=== PATIENT | female | born 1985 | race Caucasian/White ===

== ENCOUNTER → 2018-04-27 15:56 | Outpatient (CLI) | payer OTHER, SELFPAY ==
--- NOTE | 2018-04-27 15:58 | MR_ITS ---
MR knee RT wo con HISTORY: Right knee pain with a knot on side of the knee laterally, knee instability ITS.REASON: RIGHT KNEE PAIN ORDERING PHYSICIAN: Harry Flores MD PATIENT AGE: 33 years Comparison: None TECHNIQUE: Standard multiplanar multiecho sequences are performed without contrast. FINDINGS: Cruciate ligaments are intact. The collateral ligaments, patellar tendon, and quadriceps tendon are intact. No meniscal tear. Unremarkable bone marrow signal intensity. Small amount of fluid noted in the knee joint. No significant degenerative change. There is a marker placed over the anterior and lateral aspect of the knee with areas of reported palpable abnormality. No mass or fluid collection evident in this region. IMPRESSION: Small knee joint effusion otherwise negative MRI of the right knee. No soft tissue or bony mass is evident No evidence of internal derangement
--- NOTE | 2018-04-27 16:23 | XR_ITS ---
XR orbit bilateral min 4V HISTORY: Patient with prior right eye scleral banding. Evaluate for possible metallic clip ITS.REASON: RULE OUT METAL FOREIGN BODY FOR MRI ORDERING PHYSICIAN: Harry Flores MD PATIENT AGE: 33 years Comparison: None TECHNIQUE: AP views are obtained of the orbits with the patient looking up and down FINDINGS: No radio opaque foreign bodies evident. No metallic clips identified within orbital region. Small sclerotic focus is present in the right frontal bone and one centrally in the frontal area and may be due to bone islands IMPRESSION: No radio opaque orbital foreign body identified
== END ==
PROVIDERS: PCP Family Medicine; Visit Provider Family Medicine
DX: M25.561 Pain in right knee (principal); M25.461 Effusion, right knee; S83.206D Unspecified tear of unspecified meniscus, current injury, right knee, subsequent encounter
CPT/HCPCS: 70200; 73721

== ENCOUNTER 2018-06-15 16:30 | Outpatient (RCR) | payer OTHER, SELFPAY ==
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
--- NOTE | 2018-05-04 11:44 | HMH.RHREAS ---
Rehab Reassessment Rehab OP Re-assessment Start: 05/04/18 11:32 Freq: Status: Active Protocol: Document 05/04/18 11:33 JESSE (Rec: 05/04/18 11:44 JESSE [id number]) Electronically Signed By Frank Fong, PT 05/04/18 11:33 Rehab Re-assessment Subjective Subjective Pt reports 50-60% overall improvement since start of care. Objective Objective Notes AROM: WNL MMT R: hip flx 4+/5, abd 4+/5, add 4/5, ext 4+/5; ER/IR 4/5; knee flx 4-/5 with pain, ext 4+/5 TTP: R distal biceps femoris insertion. NEURO WNL Special tests negative. Assessment Progress Assessment Progressing as Expected Assessment Notes Pt continues to improve with Rx. She is no longer demonstrating extension lag or fear avoidance of terminal knee ext. She most recently had an MRI which was negative for any soft tissue damage. Mild joint effusion noted. She continues to be limited with prolonged walking/ standing, bending and squatting resulting in functional limitations with household, recreational, work related and ADL activity. She would benefit from continuing with PT and being fit for prophylactic knee brace. Patient goals met STG's Goals Not Met LTG's Revised Goals NA Plan Plan Continue with current plan of care. Frequency of Therapy 2x/week Duration of therapy 4 weeks Time and Billing Re-Eval Time 15 Re-Eval Billing Units 1 PHYSICIAN CERTIFICATION: I certify the specified therapy services for Jennifer Rosen are required, authorized, and reviewed every 30 days.
== END 2018-06-15 16:35 | disposition home or self-care (01) ==
LOC: PT 16:30
PROVIDERS: Visit Provider Family Medicine
DX: M25.561 Pain in right knee (principal)
CPT/HCPCS: 97010; 97014; 97016; 97033; 97035; 97110; 97140; 97163; 97164; G0283

== ENCOUNTER → 2019-12-20 14:06 | Outpatient (CLI) | payer OTHER, SELFPAY ==
[2019-12-20 14:14] LABS: Basophils % 0.6 % (0.1-2.0); Eosinophils # 0.1 K/mm3 (0.0-0.4); Eosinophils % 1.5 % (0.1-12.0); Hematocrit 34.2 % (37.0-47.0); Hemoglobin 12.4 g/dL (12.2-16.2); Lymphocytes # 1.6 K/mm3 (0.7-4.5); Lymphocytes % 24.1 % (10-50); Mean Corpuscular HGB Conc 36.3 g/dL (31.8-35.4); Mean Corpuscular Hemoglobin 35.7 pg (27.0-31.2); Mean Corpuscular Volume 98.4 fl (81-99); Mean Platelet Volume 8.1 fl (7.4-10.4); Monocytes # 0.3 K/mm3 (0.1-1.0); Monocytes % 4.4 % (1.7-9.3); Neutrophils # 4.7 K/mm3 (1.8-7.8); Neutrophils % 69.5 % (37.0-80.0); Platelet Count 326 K/mm3 (142-424); Red Blood Count 3.48 M/mm3 (4.20-5.40); Red Cell Distribution Width 12.6 % (11.5-17.5); White Blood Count 6.8 K/mm3 (4.8-10.8)
[2019-12-20 14:19] LABS: Alanine Aminotransferase 12 U/L (12-78); Albumin/Globulin Ratio 1.3 (1.1-1.8); Alkaline Phosphatase 109 U/L (38-126); Anion Gap 13.4 mEq/L (5-15); Aspartate Amino Transferase 21 U/L (14-36); Bilirubin,Total 0.5 mg/dl (0.2-1.3); Blood Urea Nitrogen 9 mg/dl (7-17); Calcium 9.2 mg/dl (8.4-10.2); Carbon Dioxide 26 mmol/L (22.0-30.0); Chloride 104 mmol/L (98-107); Chol/HDL Ratio 2.3 (1-3.5); Cholesterol 223 mg/dl (140-200); Estimated Glomerular Filt Rate 83 ml/min (>60); GFR (African American) 101 ML/MIN (>60); Glucose 96 mg/dl (74-100); HDL Cholesterol 99 mg/dl (40-60); Potassium 4.4 mmoL/L (3.5-5.1); Sodium 139 mmol/L (136-145); Triglycerides 107 mg/dl (30-150); VLDL Cholesterol 21 mg/dL (0-40)
[2019-12-20 14:36] LABS: T4 (Thyroxine) 9.2 ug/dl (5.53-11.0)
[2019-12-20 14:44] LABS: 25-OH Vitamin D, Total 20.5 ng/mL (30-100)
[2019-12-20 14:49] LABS: Thyroid Stimulating Hormone 2.03 uIU/mL (0.465-4.68)
== END ==
PROVIDERS: Visit Provider Physician Assistant
DX: L65.9 Nonscarring hair loss, unspecified (principal); R53.83 Other fatigue; E55.9 Vitamin D deficiency, unspecified
CPT/HCPCS: 80053; 80061; 82306; 84436; 84443; 85025

== ENCOUNTER → 2019-12-27 17:11 | Outpatient (CLI) | payer OTHER, SELFPAY ==
[2019-12-27 18:54] LABS: Coronavirus 19 IgG Antibody Negative (Negative); Coronavirus 19 IgM Antibody Negative (Negative)
== END ==
PROVIDERS: Visit Provider Nurse Practitioner Family
DX: Z20.828 Contact with and (suspected) exposure to other viral communicable diseases (principal)
CPT/HCPCS: 86328

== ENCOUNTER → 2020-01-20 13:16 | Outpatient (CLI) | payer OTHER, SELFPAY ==
[2020-01-21 16:18] LABS: Covid-19 Nasal PCR Sendout Lex NOT DETECTED
== END ==
PROVIDERS: Visit Provider Internal Medicine Adolescent Medicine
DX: Z03.818 Encounter for observation for suspected exposure to other biological agents ruled out (principal)
CPT/HCPCS: U0004

== ENCOUNTER → 2020-02-20 15:02 | Outpatient (CLI) | payer OTHER, SELFPAY | PROVIDERS: Visit Provider Obstetrics & Gynecology | DX: L02.91 Cutaneous abscess, unspecified (principal) | CPT/HCPCS: 87070; 87077; 87186; 87205 ==

== ENCOUNTER 2020-04-03 10:54 | Emergency (ER) | payer OTHER, SELFPAY ==
[2020-04-03 10:55] VITALS: BP 124/79; PULSE 98; RESP 16; TEMP 36.6; O2SAT 98; BMI 46.0
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
--- NOTE | 2020-04-03 11:27 | PC.NURSE ---
Lab at bedside
[2020-04-03 11:59] VITALS: BP 132/78; PULSE 78; RESP 16; TEMP 36.6; O2SAT 98
[2020-04-03 11:59] LABS: Basophils % 0.3 % (0.1-2.0); Eosinophils # 0.1 K/mm3 (0.0-0.4); Eosinophils % 0.7 % (0.1-12.0); Hematocrit 39.8 % (37.0-47.0); Hemoglobin 12.9 g/dL (12.2-16.2); Lymphocytes % 20.8 % (10-50); Mean Corpuscular HGB Conc 32.5 g/dL (31.8-35.4); Mean Corpuscular Volume 95.4 fl (81-99); Mean Platelet Volume 7.5 fl (7.4-10.4); Monocytes # 0.3 K/mm3 (0.1-1.0); Monocytes % 2.7 % (1.7-9.3); Neutrophils # 7.2 K/mm3 (1.8-7.8); Neutrophils % 75.5 % (37.0-80.0); Platelet Count 398 K/mm3 (142-424); Red Blood Count 4.17 M/mm3 (4.20-5.40); Red Cell Distribution Width 13.1 % (11.5-17.5); White Blood Count 9.6 K/mm3 (4.8-10.8)
[2020-04-03 12:04] LABS: Alanine Aminotransferase 16 U/L (12-78); Alkaline Phosphatase 89 U/L (38-126); Aspartate Amino Transferase 26 U/L (14-36); Bilirubin,Indirect 0.4 mg/dL (0.0-0.9); Bilirubin,Total 0.4 mg/dl (0.2-1.3); Bilirubin,Unconjugated 0.4 mg/dL (0.0-1.1)
[2020-04-03 12:05] LABS: Albumin Level 4.2 g/dl (3.5-5.0); Total Protein,Serum 7.3 g/dl (6.3-8.2)
[2020-04-03 12:11] LABS: Activated Partial Thrombo Time 28.8 seconds (23.6-34.0); INR 0.97 (0.9-1.1); Prothrombin Time 10.8 seconds (9.4-11.8)
[2020-04-06 11:39] LABS: HIV Screen 4th Generation wRfx Non Reactive (Non Reactive); Hepatitis B Surf Ab Quant 438.8 mIU/mL (Immunity>9.9); Hepatitis B Surface Antigen Negative (Negative); Hepatitis C Antibody <0.1 s/co ratio (0.0-0.9)
== END 2020-04-03 12:01 | disposition home or self-care (01) ==
PROVIDERS: Emergency Provider Emergency Medicine; PCP Physician Assistant
DX: S61.239A Puncture wound without foreign body of unspecified finger without damage to nail, initial encounter (principal); W46.0XXA Contact with hypodermic needle, initial encounter; Y93.89 Activity, other specified; Y92.531 Health care provider office as the place of occurrence of the external cause
CPT/HCPCS: 36415; 80076; 85025; 85610; 85730; 86703; 86706; 87340; 87380; 99281; G0432

== ENCOUNTER → 2020-05-08 16:27 | Outpatient (CLI) | payer OTHER, SELFPAY ==
[2020-05-08 17:36] LABS: Coronavirus 19 IgG Antibody Negative (Negative); Coronavirus 19 IgM Antibody Negative (Negative)
== END ==
PROVIDERS: Visit Provider Family Medicine
DX: Z03.818 Encounter for observation for suspected exposure to other biological agents ruled out (principal)
CPT/HCPCS: 86328

== ENCOUNTER 2020-09-14 11:53 | Day surgery (SDC) | payer OTHER, SELFPAY ==
[2020-09-14] VITALS (8 sets, daily range): BP systolic 101–128; BP diastolic 63–80; PULSE 74–100; RESP 14–18; TEMP 36.3–36.5; O2SAT 97–100; BMI 45.5; BMI 47.8
[2020-09-14 09:53] LABS: Coronavirus 19 IgG Antibody Negative (Negative); Coronavirus 19 IgM Antibody Negative (Negative)
[2020-09-14 13:04] LABS: Urine Pregnancy, HCG Qual. Negative (Negative)
--- NOTE | 2020-09-14 14:11 | P.PN_ITS ---
[facility] Anesthesia Checklist - Patient Identification Patient Identification: Arm Band - Structural Data Admitted From: Home Planned Operative Procedure/s: EGD Consent for Planned Operative Procedure(s) Verified: Yes - NPO Status Verified Time NPO: 00:00 - Airway Assessment Dentition: Good Dentition - Neurological Assessment Level of Consciousness: Awake, Alert Hx Seizures: No Numbness or tingling in extremities: No - Anesthesia Plan Anesthesia Risk discussed: Yes Anesthesia Plan: Verified ASA Class: II Anesthesia Type: MAC [facility] History I have reviewed the patient's past medical history: Yes Medical History: Reports:: Anxiety, Hypertension, Migraine, MRSA (perineal) Denies:: Cancer, Diabetes Mellitus Type 1, Diabetes Mellitus Type 2, Internal Pacemaker, Seizures *Have you ever received a pneumonia vaccine?: No *Have you received a flu vaccine this season?: Yes Anesthesia experience/problems:: None Other Surgeries: Yes: . No: Pacemaker Amputation: No Fractures: No - *Social History Last grade of school completed: Some college Smoking Status: Never smoker Alcohol Intake: never Substance Use Type: denies use *Occupational Status:: employed Housing: house Household Members: other *Travel in the last 8 weeks: None Family Hx:: No significant family history
--- NOTE | 2020-09-14 14:30 | P.PCN_ITS ---
[facility] Procedure Note Procedure Note:: Upper Endoscopy Procedure Report: Esophagogastroduodenoscopy with cold biopsies and TTS balloon dilation Endoscopost: Jordin Quinones II, MD Referring Physician: MERCEDEZ Agudelo Date of Procedure: September 14, 2020 Equipment: Olympus GIF 190 standard upper endoscope Sedation: MAC sedation Indications: Mrs. Rosen is a 35-year-old female with dysphagia over the last couple of years which has worsened. This occurs primarily with dry breads and meats. This did occur more recently after eating at the [employer] and pineapple got hung up. The only thing that will push things through his water. She does have some intermittent heartburn but not recently. She reports no indigestion, bloating or belching. She has normal bowel function. This is her first upper endoscopy. Procedure: Prior to the procedure, a history and physical exam was performed, and patient's medications and allergies were reviewed. The risks, benefits and alternatives of the sedation and procedure were discussed with the patient. All questions were answered and informed consent was obtained. The patient was brought to the procedure room. Patient identification and proposed procedure were verified by the physician and the nurse. The patient was placed in a left lateral decubitus position and the scope was passed under direct vision. Throughout the procedure, the patient's blood pressure, pulse, and oxygen saturations were monitored continuously. The upper GI endoscopy was accomplished without diffi culty. The patient tolerated the procedure well. Findings: The scope was passed directly into the upper esophagus and advanced to the third portion of the duodenum. The post bulbar duodenum and duodenal bulb were normal with normal mucosa and conniventes. The scope was withdrawn through a normal duodenal bulb and pylorus into the stomach. The antrum, body and fundus of the stomach were grossly normal. Upon retroflexion there was a small 1 to 2 cm hiatal hernia. The scope was then withdrawn into the esophagus. There was a distal esophageal ring with evidence of grade B?C reflux esophagitis. There was minor furrowing and minor corrugation. Biopsies were taken from the distal and proximal esophagus to rule out eosinophilic esophagitis versus esophageal reflux changes. The entire esophagus was dilated to 60 [place]/20 mm with a TTS hydrostatic balloon. The remainder of the esophageal mucosa was normal. Impression: 1. Grade B?C reflux esophagitis (LA classification) with distal esophageal ringlike stricture?dilated to 20 mm 2. Minor furrowing/esophageal corrugation?rule out eosinophilic esophagitis 3. Very small sliding hiatal hernia (1 to 2 cm) Plan: I am going to place the patient on omeprazole for 3 months for healing of the reflux esophagitis. I will follow-up the biopsies to rule out eosinophilic esophagitis (EoE) versus reflux. I am going to obtain Rast food allergy testing today. If the biopsies show any evidence of eosinophilic esophagitis, we will consider nonpharmacologic therapy (food illumination) versus long-term PPI or fluticasone.
--- NOTE | 2020-09-14 14:35 | P.PN_ITS ---
[facility] Anesthesia Record Part I Intake, IV Amount: 600 Estimated blood loss (mL): 0 Urine output (mL): 0 Blood Pressure: 107/63 SaO2: 100 Pulse Rate: 90 Respiratory Rate: 14 Temperature: 97.4 F Patient is:: Awake Stable to PACU at:: 14:34
[2020-09-20 22:22] LABS: F001-IgE Egg White <0.10 kU/L (Class 0); F002-IgE Milk <0.10 kU/L (Class 0); F003-IgE Codfish <0.10 kU/L (Class 0); F004-IgE Wheat <0.10 kU/L (Class 0); F013-IgE Peanut <0.10 kU/L (Class 0); F014-IgE Soybean <0.10 kU/L (Class 0); F024-IgE Shrimp 0.98 kU/L (Class II); F256-IgE Walnut <0.10 kU/L (Class 0); F338-IgE Scallop <0.10 kU/L (Class 0)
[2020-09-22 04:20] LABS: F010-IgE Sesame Seed <0.10 kU/L (Class 0)
== END 2020-09-14 15:29 | disposition home or self-care (01) ==
LOC: OUTP 11:55
PROVIDERS: PCP Nurse Practitioner Family; Visit Provider Internal Medicine Gastroenterology
PROC: 0DJ08ZZ Inspection of Upper Intestinal Tract, Via Natural or Artificial Opening Endoscopic (ICD-10-PCS; CPT 43235; principal; 2020-09-14 13:00)
DX: K21.9 Gastro-esophageal reflux disease without esophagitis; K22.9 Disease of esophagus, unspecified; K44.9 Diaphragmatic hernia without obstruction or gangrene; F41.9 Anxiety disorder, unspecified; I10 Essential (primary) hypertension; G43.909 Migraine, unspecified, not intractable, without status migrainosus; Z86.14 Personal history of Methicillin resistant Staphylococcus aureus infection; F32.9 Major depressive disorder, single episode, unspecified; F90.9 Attention-deficit hyperactivity disorder, unspecified type; Z79.899 Other long term (current) drug therapy
CPT/HCPCS: 43239; 43249; 36415; 81025; 86003; 86008; 86328; C1726

== ENCOUNTER → 2021-01-04 17:10 | Outpatient (CLI) | payer OTHER, SELFPAY ==
[2021-01-04 17:29] LABS: Coronavirus 19, PCR Not Detected (NotDetected); Influenza A, PCR Not Detected (NotDetected); Influenza B, PCR Not Detected (NotDetected)
== END ==
PROVIDERS: PCP Nurse Practitioner Family; Visit Provider Nurse Practitioner Family
DX: Z20.822 Contact with and (suspected) exposure to COVID-19 (principal)
CPT/HCPCS: U0003

== ENCOUNTER → 2021-01-08 12:07 | Outpatient (CLI) | payer OTHER, SELFPAY ==
[2021-01-08 12:51] LABS: Coronavirus 19, PCR Not Detected (NotDetected); Influenza A, PCR Not Detected (NotDetected); Influenza B, PCR Not Detected (NotDetected)
== END ==
PROVIDERS: PCP Nurse Practitioner Family; Visit Provider Emergency Medicine
DX: Z20.822 Contact with and (suspected) exposure to COVID-19 (principal)
CPT/HCPCS: U0003

== ENCOUNTER → 2021-01-27 13:10 | Outpatient (CLI) | payer OTHER, SELFPAY ==
[2021-01-27 13:22] LABS: Adenovirus,PCR Not Detected (NotDetected); Bordetella Pertussis Not Detected (NotDetected); Chlamydophila Pneumoniae, PCR Not Detected (NotDetected); Coronavirus 19, PCR Not Detected (NotDetected); Coronavirus 229E Not Detected (NotDetected); Coronavirus NL63 Not Detected (NotDetected); Coronavirus OC43 Not Detected (NotDetected); Coronovirus HKU1,PCR Not Detected (NotDetected); Human Metapneumovirus Not Detected (NotDetected); Influenza A, PCR Not Detected (NotDetected); Influenza AH1, 2009 Not Detected (NotDetected); Influenza AH1, PCR Not Detected (NotDetected); Influenza AH3,PCR Not Detected (NotDetected); Influenza B, PCR Not Detected (NotDetected); Mycoplasma Pneumoniae, PCR Not Detected (NotDetected); Parainfluenza 1, PCR Not Detected (NotDetected); Parainfluenza 2, PCR Not Detected (NotDetected); Parainfluenza 3, PCR Not Detected (NotDetected); Parainfluenza 4, PCR Not Detected (NotDetected); Respiratory Syncytial Virus Not Detected (NotDetected); Rhinovirus/Enterovirus Not Detected (NotDetected)
== END ==
PROVIDERS: Visit Provider Nurse Practitioner Family
DX: Z20.822 Contact with and (suspected) exposure to COVID-19 (principal)
CPT/HCPCS: 87486; 87581; 87633; 87798; U0003

== ENCOUNTER 2021-02-01 17:38 | Emergency (ER) | payer OTHER, SELFPAY ==
[2021-02-01 18:35] VITALS: BP 115/79; PULSE 91; RESP 20; TEMP 36.8; O2SAT 99; BMI 44.1
[2021-02-01 18:52] LABS: Influenza A, PCR Not Detected (NotDetected); Influenza B, PCR Not Detected (NotDetected)
--- NOTE | 2021-02-01 19:04 | HMH.EDUTC ---
[facility] Disposition Clinical Impression: Exposure to COVID-19 virus Disposition: Home, Self-Care Condition on Discharge: Good Instructions: DI for COVID-19 (Suspected or Confirmed ), Preventing the Spread of Coronavirus Discharge Instructions Additional Instructions: *Monitor Temp, Over the counter Motrin or Tylenol as directed/as needed Tylenol every 4 hours and Motrin every 6 hours (as long as your family doctor has told you that you can take it) for fever or pain. and straight to ER if unable to lower temp less than 101.0 after medication given *Warm salt water gargles may help to soothe the throat *Throat Lozenges *Warm fluids like tea with honey may help to soothe the throat *Sleep elevated *Humidifier/Vaporizer * Follow up IMMEDIATELY for new or worsening symptoms or no Noticeable improvement over the next 48-72 hours. 911 for difficulty breathing or swallowing You were tested for today for COVID19 your test result should be back in the next 24-48 hours, You was given instructions to check on [facility] Portal for your results if you do not have internet access you may call the [facility] You was given a handout with instructions for Self Quarantine and Self isolation for while you wait on test results and what to do if they are positive If you are positive the Health Dept will be contacting you also Make sure to take your Vitamins Vit. C Vit D and Zinc if you can take them Referrals: Pb Anguiano APRN [Primary Care Provider] - As needed Forms: Work/School Release Time of Disposition: 19:10 Medical Decision Making - Kit Inquiry Pt receiving controlled substance: No Kit was queried for this patient: No Vital Signs: 02/01/21 18:35 Temperature 98.2 F Temperature Source Oral Pulse Rate [Right Brachial] 91 H Respiratory Rate 20 Blood Pressure [Right Arm] 115/79 Blood Pressure Mean [Right Arm] 91 Blood Pressure Source [Right Arm] Automatic Cuff Blood Pressure Position [Right Arm] Sitting 02 Sat by Pulse Oximetry 99 Oxygen Delivery Method Room Air Orders (Tests/Meds): ORDERS Category Date Time Status Rapid PCR Covid and Flu A/B Stat Lab 02/01/21 18:44 Received [facility] HPI - General Stated complaint: covid test Time Seen by Provider: 02/01/21 19:00 Mode of Arrival: Ambulatory Source of Information: Patient Limitations: No Limitations Description of Symptoms (Recalled from Triage Doc. by RN): COVID TEST D/T EXPOSURE. C/O HEADACHE, RUNNY NOSE, AND LOSS OF TASTE AND SMELL HEENT Symptoms (Recalled from RN notes): Yes Resp Symptoms (Recalled from RN notes): No Skin Symptoms (Recalled from RN notes): No MS Symptoms (Recalled from RN notes): No Functional Status (Recalled from RN notes): WNL - History of Present Illness Provider Complaint: Patient states that her child was recently dx with COVID states that now she is having symptoms States that she has been having body aches, chills, runny nose and scratchy throat and noticed earlier that she was unable to taste and smell anything so she came in to get tested - Related Data Previous Rx's Medication Instructions Recorded norethindrone 1 mg-ethin. 1 cap PO QDAY #84 cap 06/25/20 estradiol 20 mcg (24)-iron 75 mg (4) capsule dextroamphetamine-amphetamine ER 15 mg PO DAILY #30 cap 12/17/20 15 mg 24hr capsule,extend release fluconazole 100 mg tablet 100 mg PO ONCE #7 tab 01/13/21 omeprazole 40 mg capsule,delayed 40 mg PO DAILY #90 cap 01/13/21 release vilazodone 40 mg tablet 40 mg PO DAILY #30 tab 01/27/21 Allergies Allergy/AdvReac Type Severity Reaction Status Date / Time codeine Allergy Verified 12/17/20 16:19 - Worker's Comp Is this a Worker's Comp case?: No [facility] History - Hepatitis A Screen Drug use history?: No High risk sexual behaviors?: No History of sexually transmitted infection?: No Currently employed?: No Childcare worker?: No Do you have indoor plumbing?: Yes Do you have electricity?: Yes Attestation
[2021-02-01 19:11] VITALS: BP 115/79; PULSE 91; RESP 20; TEMP 36.8; O2SAT 99
[2021-02-01 19:48] LABS: Coronavirus 19, PCR Detected (NotDetected)
== END 2021-02-01 19:14 | disposition home or self-care (01) ==
PROVIDERS: Emergency Provider Nurse Practitioner; PCP Nurse Practitioner Family
DX: Z20.822 Contact with and (suspected) exposure to COVID-19 (principal)
CPT/HCPCS: 99202; G0463; U0003

== ENCOUNTER 2021-04-08 20:13 | Emergency (ER) | payer OTHER, SELFPAY ==
[2021-04-08 20:14] VITALS: BMI 45.1
[2021-04-08 20:16] VITALS: BP 134/88; PULSE 112; RESP 18; O2SAT 100
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
[2021-04-08 20:51] LABS: Basophils # 0.1 K/mm3 (0-0.2); Basophils % 0.4 % (0.1-2.0); Eosinophils # 0.1 K/mm3 (0.0-0.4); Eosinophils % 0.5 % (0.1-12.0); Hematocrit 40.4 % (37.0-47.0); Lymphocytes # 2.1 K/mm3 (0.7-4.5); Lymphocytes % 13.1 % (10-50); Mean Corpuscular HGB Conc 32.1 g/dL (31.8-35.4); Mean Corpuscular Hemoglobin 30.1 pg (27.0-31.2); Mean Corpuscular Volume 93.7 fl (81-99); Monocytes # 0.5 K/mm3 (0.1-1.0); Monocytes % 3.3 % (1.7-9.3); Neutrophils # 13.4 K/mm3 (1.8-7.8); Neutrophils % 82.7 % (37.0-80.0); Platelet Count 425 K/mm3 (142-424); Red Blood Count 4.31 M/mm3 (4.20-5.40); Red Cell Distribution Width 13.2 % (11.5-17.5); White Blood Count 16.2 K/mm3 (4.8-10.8)
[2021-04-08 20:55] LABS: Chloride 104 mmol/L (98-107); MANUAL DIFFERENTIAL MANUAL DIFFERENTIAL (MANUAL DIFF)
[2021-04-08 20:56] LABS: Potassium 3.8 mmoL/L (3.5-5.1); Sodium 138 mmol/L (136-145)
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
[2021-04-08 20:58] LABS: Alanine Aminotransferase 15 U/L (12-78); Alkaline Phosphatase 125 U/L (38-126); Anion Gap 11.8 mEq/L (5-15); Aspartate Amino Transferase 22 U/L (14-36); Bilirubin,Total 0.4 mg/dl (0.2-1.3); Blood Urea Nitrogen 7 mg/dl (7-17); Carbon Dioxide 26 mmol/L (22.0-30.0); Creatinine Clearance Estimated 82 mL/min (50-200); Estimated Glomerular Filt Rate 82 ml/min (>60); GFR (African American) 99 ML/MIN (>60)
[2021-04-08 20:59] LABS: Albumin Level 4.2 g/dl (3.5-5.0); Albumin/Globulin Ratio 1.4 (1.1-1.8); Calcium 8.6 mg/dl (8.4-10.2); Globulin 3.1 g/dL (1.3-3.2); Glucose 101 mg/dl (74-100); Total Protein,Serum 7.3 g/dl (6.3-8.2)
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
[2021-04-08 21:26] LABS: Eosinophils % 1 % (0-3); Lymphocytes % 13 % (10-50); Monocytes % 6 % (2-9); Neutrophils % 79 % (42-76); Platelet Estimate Normal; Total Cells Counted 100
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
[2021-04-09 01:15] VITALS: BP 101/68; PULSE 88; RESP 16; TEMP 36.6; O2SAT 97
== END 2021-04-09 01:34 | disposition home or self-care (01) ==
PROVIDERS: Emergency Provider Emergency Medicine; PCP Nurse Practitioner Family
DX: S06.0X0A Concussion without loss of consciousness, initial encounter (principal); S62.91XA Unspecified fracture of right hand, initial encounter for closed fracture; S92.144A Nondisplaced dome fracture of right talus, initial encounter for closed fracture; W22.10XA Striking against or struck by unspecified automobile airbag, initial encounter; V49.9XXA Car occupant (driver) (passenger) injured in unspecified traffic accident, initial encounter; Y92.488 Other paved roadways as the place of occurrence of the external cause
CPT/HCPCS: 29515; 70450; 71045; 71260; 72125; 72170; 73110; 73130; 73590; 73610; 73630; 73700; 80053; 85007; 85025; 96376; 99283; J2405; Q9967

== ENCOUNTER 2021-07-28 17:00 | Outpatient (RCR) | payer OTHER, SELFPAY | END 2021-07-28 17:05 | disposition home or self-care (01) | LOC: PT 17:00 | PROVIDERS: PCP Nurse Practitioner Family | DX: S62.610A Displaced fracture of proximal phalanx of right index finger, initial encounter for closed fracture (principal); S92.111A Displaced fracture of neck of right talus, initial encounter for closed fracture | CPT/HCPCS: 97110; 97140; 97163; 97760 ==

== ENCOUNTER 2022-01-23 16:46 | Emergency (ER) | payer OTHER, SELFPAY ==
[2022-01-23 17:21] VITALS: BP 178/95; PULSE 90; RESP 17; TEMP 36.7; O2SAT 99; BMI 46.9
--- NOTE | 2022-01-23 17:39 | EXP.UTC ---
Discharge Plan Disposition Patient Disposition: Home, Self-Care Condition: Good Prescriptions Prescriptions: New cephalexin [cephalexin] 500 mg capsule 500 mg PO Q6H 10 Days Qty: 40 0RF No Action dextroamphetamine-amphetamine [Adderall XR] 30 mg capsule,extended release 24hr 30 mg PO DAILY Qty: 30 0RF bupropion HCl [Wellbutrin XL] 150 mg tablet extended release 24 hr 150 mg PO DAILY Qty: 30 1RF erythromycin 5 mg/gram (0.5 %) ointment 1 applic OPHTHALMIC DAILY Qty: 3.5 0RF Rx Instructions: Apply to lid margin and outer eye lid once a day X 3-4 weeks until resolved oxycodone-acetaminophen [Percocet] 5-325 mg tablet See Rx Instructions PO Q6H PRN (Reason: pain) Qty: 45 0RF Rx Instructions: one or two tablets PO every 6 hours PRN; furosemide [Lasix] 40 mg tablet 40 mg PO DAILY PRN (Reason: edema) Qty: 30 2RF Ubrelvy 100 mg tablet 100 mg PO ONCE PRN (Reason: migraine headache) 30 Days Qty: 48 0RF omeprazole 40 mg capsule,delayed release(DR/EC) 40 mg PO DAILY Qty: 90 3RF Referrals Follow up/Referrals: Pb Anguiano APRN [Primary Care Provider] - See instructions Activity Restrictions/Add. Instructions Additional Instructions/Restrictions: Keep the wound clean and dry. Keep a dressing on it if you are going to be getting it dirty. Watch the for signs of infection, such as redness, swelling, drainage, fever. etc. Take tylenol or ibuprofen for pain. Follow up with her regular doctor. Return in 10 days to have the sutures removed. GO TO THE ER FOR ANY WORSENING SYMPTOMS OR CONCERNS. Clinical Impressions Clinical Impression: Laceration of right index finger Instructions Patient Instructions: DI for Laceration Repair, DI for Laceration Repair -- Simple Discharge ED Provider: Bc Levy [facility] [place] General Stated complaint: [id number] At home lac to R index finger Mode of Arrival: Ambulatory Source of Information: Patient Limitations: No Limitations Time Seen by Provider: 01/23/22 17:40 Description of Symptoms (Recalled from Triage Doc. by RN): pt comes in with lac to right index finger. happened today while she was attempting to slice potatoes. HEENT Symptoms (Recalled from RN notes): No Resp Symptoms (Recalled from RN notes): No Skin Symptoms (Recalled from RN notes): Yes MS Symptoms (Recalled from RN notes): No Functional Status (Recalled from RN notes): n/a History of Present Illness Provider Complaint: She was slicing potatoes on a mandolin today when she slipped and cut herself on the tip of her right index finger. She has a laceration there. Her tetanus immunization is not up to date. Related Data Previous Rx's Medication Instructions Recorded erythromycin 5 mg/gram (0.5 %) eye 1 applic ophthalmic (eye) DAILY 02/25/21 ointment #3.5 grams oxycodone-acetaminophen 5 mg-325 See Rx Instructions PO Q6H PRN 04/09/21 mg tablet (Percocet) pain #45 tabs furosemide 40 mg tablet (Lasix) 40 mg PO DAILY PRN edema #30 tabs 08/03/21 ubrogepant 100 mg tablet (Ubrelvy) 100 mg PO ONCE PRN migraine 08/10/21 headache 30 days #48 tabs dextroamphetamine-amphetamine ER 30 mg PO DAILY #30 caps 11/01/21 30 mg 24hr capsule,extend release (Adderall XR) omeprazole 40 mg capsule,delayed 40 mg PO DAILY #90 caps 12/02/21 release bupropion HCl 150 mg 24 hr tablet, 150 mg PO DAILY #30 tabs 01/03/22 extended release (Wellbutrin XL) cephalexin 500 mg capsule 500 mg PO Q6H 10 days #40 caps 01/23/22 Allergies Allergy/AdvReac Type Severity Reaction Status Date / Time codeine Allergy Verified 01/13/22 14:33 Worker's Comp Is this a Worker's Comp case?: No PFSH PFSH Medical History Anxiety Attention Deficit Hyperactivity Disorder (ADHD) Depression Social History Smoking Status: Former smoker alcohol intake: never substance use type: lavon
[2022-01-23 18:54] VITALS: BP 178/95; PULSE 90; RESP 17; TEMP 36.7
== END 2022-01-23 19:02 | disposition home or self-care (01) ==
PROVIDERS: Emergency Provider Nurse Practitioner Family; PCP Nurse Practitioner Family
DX: S61.210A Laceration without foreign body of right index finger without damage to nail, initial encounter (principal); G43.909 Migraine, unspecified, not intractable, without status migrainosus; F90.9 Attention-deficit hyperactivity disorder, unspecified type; F32.A Depression, unspecified; F41.9 Anxiety disorder, unspecified; Z79.51 Long term (current) use of inhaled steroids; Z79.899 Other long term (current) drug therapy; Z23 Encounter for immunization; Z87.891 Personal history of nicotine dependence; W26.9XXA Contact with unspecified sharp object(s), initial encounter
CPT/HCPCS: 12001; 90471; 90715; 99213; G0463

== ENCOUNTER → 2022-03-18 12:56 | Outpatient (CLI) | payer OTHER, SELFPAY ==
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
== END ==
PROVIDERS: PCP Nurse Practitioner Family; Visit Provider Nurse Practitioner
DX: N64.4 Mastodynia (principal); T14.8XXA Other injury of unspecified body region, initial encounter
CPT/HCPCS: 76641

== ENCOUNTER → 2022-04-25 10:47 | Outpatient (CLI) | payer OTHER, SELFPAY ==
[2022-04-25 10:38] LABS: Adenovirus,PCR Not Detected (NotDetected); Bordetella Pertussis Not Detected (NotDetected); Chlamydophila Pneumoniae, PCR Not Detected (NotDetected); Coronavirus 19, PCR Not Detected (NotDetected); Coronavirus 229E Not Detected (NotDetected); Coronavirus NL63 Not Detected (NotDetected); Coronavirus OC43 Not Detected (NotDetected); Coronovirus HKU1,PCR Not Detected (NotDetected); Human Metapneumovirus Not Detected (NotDetected); Influenza A, PCR Not Detected (NotDetected); Influenza AH1, 2009 Not Detected (NotDetected); Influenza AH1, PCR Not Detected (NotDetected); Influenza AH3,PCR Not Detected (NotDetected); Influenza B, PCR Not Detected (NotDetected); Mycoplasma Pneumoniae, PCR Not Detected (NotDetected); Parainfluenza 1, PCR Not Detected (NotDetected); Parainfluenza 2, PCR Not Detected (NotDetected); Parainfluenza 3, PCR Not Detected (NotDetected); Parainfluenza 4, PCR Not Detected (NotDetected); Respiratory Syncytial Virus Not Detected (NotDetected); Rhinovirus/Enterovirus Not Detected (NotDetected)
[2022-04-25 10:48] LABS: Basophils # 0.1 K/mm3 (0-0.2); Basophils % 1.2 % (0.1-2.0); Eosinophils # 0.2 K/mm3 (0.0-0.4); Eosinophils % 2.3 % (0.1-12.0); Hemoglobin 12.6 g/dL (12.2-16.2); Lymphocytes # 2.2 K/mm3 (0.7-4.5); Lymphocytes % 26.1 % (10-50); Mean Corpuscular HGB Conc 30.7 g/dL (31.8-35.4); Mean Corpuscular Hemoglobin 28.6 pg (27.0-31.2); Mean Corpuscular Volume 93.2 fl (81-99); Mean Platelet Volume 8.6 fl (7.4-10.4); Monocytes # 0.4 K/mm3 (0.1-1.0); Monocytes % 4.5 % (1.7-9.3); Neutrophils # 5.5 K/mm3 (1.8-7.8); Platelet Count 546 K/mm3 (142-424); Red Blood Count 4.39 M/mm3 (4.20-5.40); Red Cell Distribution Width 13.7 % (11.5-17.5); White Blood Count 8.3 K/mm3 (4.8-10.8)
== END ==
PROVIDERS: PCP Nurse Practitioner; Visit Provider Nurse Practitioner
DX: J02.9 Acute pharyngitis, unspecified (principal)
CPT/HCPCS: 85025; 87581; 87632; 87798; C9803; U0003; U0005

== ENCOUNTER → 2022-07-08 11:00 | Outpatient (CLI) | payer OTHER, SELFPAY ==
[2022-07-08 18:04] LABS: Alanine Aminotransferase 15 U/L (12-78); Albumin Level 4.2 g/dl (3.5-5.0); Albumin/Globulin Ratio 1.4 (1.1-1.8); Alkaline Phosphatase 115 U/L (38-126); Anion Gap 8.8 mEq/L (5-15); Aspartate Amino Transferase 20 U/L (14-36); Bilirubin,Total 0.3 mg/dl (0.2-1.3); Blood Urea Nitrogen 9 mg/dl (7-17); Calcium 8.5 mg/dl (8.4-10.2); Carbon Dioxide 29 mmol/L (22.0-30.0); Chloride 106 mmol/L (98-107); Estimated Glomerular Filt Rate 71 ml/min (>60); GFR (African American) 86 ML/MIN (>60); Globulin 3.1 g/dL (1.3-3.2); Glucose 83 mg/dl (74-100); Potassium 3.8 mmoL/L (3.5-5.1); Sodium 140 mmol/L (136-145); Total Protein,Serum 7.3 g/dl (6.3-8.2)
[2022-07-08 18:54] LABS: Vitamin B12 223 pg/mL (239-931)
[2022-07-10 11:08] LABS: FSH 14.2 mIU/mL (.); Progesterone 0.1 ng/mL (.)
[2022-07-15 02:45] LABS: Estrogen 61 pg/mL (.)
[2022-07-18 21:19] LABS: Testosterone, Total, LC/MS 19 ng/dL (.)
[2022-07-21 12:37] LABS: 1,25 Dihydroxy Vitamin D 50 pg/mL (.); 1,25-Dihydroxy, Vitamin D-2 <10 pg/mL (.); 1,25-Dihydroxy, Vitamin D-3 44 pg/mL (.)
== END ==
PROVIDERS: PCP Family Medicine; Visit Provider Family Medicine
DX: R60.0 Localized edema (principal); E66.9 Obesity, unspecified; Z68.42 Body mass index [BMI] 45.0-49.9, adult
CPT/HCPCS: 80053; 82607; 82652; 82672; 83001; 84144; 84403; 84443

== ENCOUNTER → 2022-08-09 23:00 | Outpatient (CLI) | payer OTHER, SELFPAY ==
[2022-08-09 18:20] LABS: Adenovirus,PCR Not Detected (NotDetected); Bordetella Pertussis Not Detected (NotDetected); Chlamydophila Pneumoniae, PCR Not Detected (NotDetected); Coronavirus 19, PCR Not Detected (NotDetected); Coronavirus 229E Not Detected (NotDetected); Coronavirus NL63 Not Detected (NotDetected); Coronavirus OC43 Not Detected (NotDetected); Coronovirus HKU1,PCR Not Detected (NotDetected); Human Metapneumovirus Not Detected (NotDetected); Influenza A, PCR Not Detected (NotDetected); Influenza AH1, 2009 Not Detected (NotDetected); Influenza AH1, PCR Not Detected (NotDetected); Influenza AH3,PCR Not Detected (NotDetected); Influenza B, PCR Not Detected (NotDetected); Mycoplasma Pneumoniae, PCR Not Detected (NotDetected); Parainfluenza 1, PCR Not Detected (NotDetected); Parainfluenza 2, PCR Not Detected (NotDetected); Parainfluenza 3, PCR Not Detected (NotDetected); Parainfluenza 4, PCR Not Detected (NotDetected); Respiratory Syncytial Virus Not Detected (NotDetected); Rhinovirus/Enterovirus Not Detected (NotDetected)
[2022-08-09 18:49] LABS: Basophils # 0.1 K/mm3 (0-0.2); Basophils % 0.6 % (0.1-2.0); Eosinophils # 0.1 K/mm3 (0.0-0.4); Eosinophils % 1.5 % (0.1-12.0); Hemoglobin 11.9 g/dL (12.2-16.2); Lymphocytes # 2.2 K/mm3 (0.7-4.5); Lymphocytes % 25.4 % (10-50); Mean Corpuscular HGB Conc 31.2 g/dL (31.8-35.4); Mean Corpuscular Hemoglobin 28.7 pg (27.0-31.2); Mean Corpuscular Volume 92.1 fl (81-99); Mean Platelet Volume 7.4 fl (7.4-10.4); Monocytes # 0.4 K/mm3 (0.1-1.0); Monocytes % 4.6 % (1.7-9.3); Neutrophils # 5.9 K/mm3 (1.8-7.8); Neutrophils % 67.9 % (37.0-80.0); Platelet Count 483 K/mm3 (142-424); Red Blood Count 4.13 M/mm3 (4.20-5.40); Red Cell Distribution Width 13.8 % (11.5-17.5); White Blood Count 8.7 K/mm3 (4.8-10.8)
== END ==
PROVIDERS: PCP Family Medicine; Visit Provider Family Medicine
DX: J02.9 Acute pharyngitis, unspecified (principal)
CPT/HCPCS: 85025; 87581; 87632; 87798; C9803; U0003; U0005

== ENCOUNTER → 2022-09-15 13:38 | Outpatient (CLI) | payer OTHER, SELFPAY ==
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
== END ==
PROVIDERS: PCP Nurse Practitioner; Visit Provider Nurse Practitioner
DX: D48.61 Neoplasm of uncertain behavior of right breast (principal); N64.89 Other specified disorders of breast
CPT/HCPCS: 76641

== ENCOUNTER → 2022-11-22 12:54 | Outpatient (CLI) | payer OTHER, SELFPAY ==
[2022-11-22 20:07] LABS: Erythrocyte Sedimentation Rate 107 mm/hr (0-20)
[2022-12-07 15:46] LABS: Antinuclear Antibodies (ANA) Negative
== END ==
PROVIDERS: PCP Family Medicine; Visit Provider Family Medicine
DX: M25.50 Pain in unspecified joint (principal)
CPT/HCPCS: 85651; 86038

== ENCOUNTER → 2022-12-26 14:40 | Outpatient (CLI) | payer OTHER, SELFPAY ==
--- NOTE | 2022-12-26 14:42 | MM_ITS ---
PROCEDURE INFORMATION: Exam: Bilateral Diagnostic Breast Tomosynthesis Exam date and time: 12/26/2022 2:40 PM Age: 37 years old Clinical indication: Patient recalled on the basis of a screening mammogram for further evaluation; Right breast mass TECHNIQUE: Imaging protocol: Bilateral Diagnostic tomosynthesis and 2D mammography including computer-aided detection (CAD) when performed. Unilateral or bilateral exam. COMPARISON: 1. US BREAST RT COMPLETE 09/15/2022 1:52 PM 2. US BREAST RT COMPLETE 03/18/2022 1:14 PM FINDINGS: MAMMOGRAPHY: The breast tissue is composed of scattered areas of fibroglandular density. A skin marker was placed over an area of palpable concern in the right immediate retroareolar region. No focal findings on spot compression or routine views. A second skin marker was placed over second area of palpable concern in the middle third of the right upper inner quadrant. This corresponds on routine and spot compression views to a stellate mass measuring approximately 2.2 by 1.8 cm in dimension. There is associated architectural distortion present. No suspicious findings in the left breast. No skin thickening or axillary adenopathy. IMPRESSION: Mammography demonstrates a stellate mass in the right upper inner quadrant. Ultrasound-guided core biopsy is recommended for further evaluation. The most recent sonogram dated 09/15/2022 was re-reviewed and cursors were placed over 1 or perhaps 2 separate masses in the right 12 o'clock axis. It is very unclear given the sonographic images submitted if there is 1 or 2 masses present in the right approximate 12 o'clock axis 11 cm from the nipple. There is only 1 irregular mass seen on mammography. The differential diagnosis includes primary breast carcinoma versus fat necrosis . Reassessment for potential second mass in the right 12 o'clock axis on sonography is needed as an additional ultrasound-guided core biopsy may be performed. ASSESSMENT: BI-RADS Category 4: Suspicious
== END ==
PROVIDERS: PCP Family Medicine; Visit Provider Nurse Practitioner
DX: D48.61 Neoplasm of uncertain behavior of right breast (principal)
CPT/HCPCS: 77062; 77066; G0279

== ENCOUNTER → 2023-01-11 07:38 | Outpatient (CLI) | payer OTHER, SELFPAY ==
--- NOTE | 2023-01-11 07:39 | US_ITS ---
FINAL REPORT CLINICAL HISTORY: 12:00 NODULE --right breast mass FINDINGS: ULTRASOUND-GUIDED RIGHT BREAST CORE BIOPSY TECHNIQUE: Limited images were obtained to localize region of interest. The right breast was prepped in a routine sterile fashion and locally anesthetized with 1% lidocaine. Standard written informed consent was obtained. The biopsy needle was positioned within the outer periphery of the lesion. A total of 4 passes were made with a 16 gauge core biopsy needle. A biopsy marker clip was deployed in satisfactory position. Postbiopsy mammogram showed postbiopsy changes with clip in satisfactory position. Procedure was well tolerated . CONCLUSION: 1. Technically successful ultrasound guided core biopsy of right breast lesion as above. 2. Biopsy marker clip deployed Authenticated and ERN
--- NOTE | 2023-01-11 07:47 | MM_ITS ---
FINAL REPORT CLINICAL HISTORY: .clip placement, right breast biopsy FINDINGS: MAMMOGRAM RIGHT TECHNIQUE: Standard digital 2-D views COMPARISON: 12-26-22 DENSITY: There are scattered areas of fibroglandular density FINDINGS: Post biopsy marker clip is noted to be in satisfactory position. Postbiopsy changes are noted. Irregular density is noted associated with the biopsy marker clip at 12-1:00. IMPRESSION: Biopsy marker clip in good position RECOMMENDATION: 6 month mammographic follow-up is normal post benign biopsy surveillance. Histopathology findings of organizing fat necrosis are concordant with clinical history and imaging findings. Authenticated and ERN
== END ==
LOC: RAD 07:39
PROVIDERS: PCP Family Medicine; Visit Provider Nurse Practitioner
DX: D48.61 Neoplasm of uncertain behavior of right breast (principal)
CPT/HCPCS: 19083; 77065

== ENCOUNTER → 2023-02-16 07:19 | Outpatient (CLI) | payer OTHER, SELFPAY ==
[2023-02-15 19:11] LABS: Basophils % 0.3 % (0.1-2.0); Eosinophils # 0.2 K/mm3 (0.0-0.4); Eosinophils % 1.6 % (0.1-12.0); Hematocrit 39.7 % (37.0-47.0); Hemoglobin 12.3 g/dL (12.2-16.2); Lymphocytes # 2.6 K/mm3 (0.7-4.5); Lymphocytes % 25.9 % (10-50); Mean Corpuscular Hemoglobin 29.1 pg (27.0-31.2); Mean Corpuscular Volume 93.9 fl (81-99); Monocytes # 0.5 K/mm3 (0.1-1.0); Monocytes % 5.2 % (1.7-9.3); Neutrophils # 6.8 K/mm3 (1.8-7.8); Platelet Count 455 K/mm3 (142-424); Red Blood Count 4.23 M/mm3 (4.20-5.40); Red Cell Distribution Width 13.1 % (11.5-17.5); White Blood Count 10.2 K/mm3 (4.8-10.8)
[2023-02-15 19:21] LABS: Alanine Aminotransferase 16 U/L (12-78); Albumin Level 4.3 g/dl (3.5-5.0); Albumin/Globulin Ratio 1.3 (1.1-1.8); Alkaline Phosphatase 122 U/L (38-126); Anion Gap 14.2 mEq/L (5-15); Aspartate Amino Transferase 21 U/L (14-36); Bilirubin,Total 0.3 mg/dl (0.2-1.3); Blood Urea Nitrogen 8 mg/dl (7-17); Carbon Dioxide 27 mmol/L (22.0-30.0); Chloride 103 mmol/L (98-107); Estimated Glomerular Filt Rate 63 ml/min (>60); GFR (African American) 76 ML/MIN (>60); Globulin 3.4 g/dL (1.3-3.2); Glucose 77 mg/dl (74-100); Potassium 4.2 mmoL/L (3.5-5.1); Sodium 140 mmol/L (136-145); Total Protein,Serum 7.7 g/dl (6.3-8.2)
[2023-02-15 19:31] LABS: NT Pro Brain Natriuretic Pep. < 20.0 pg/mL (0-125)
[2023-02-15 19:39] LABS: Free T4 (Free Thyroxine) 0.81 ng/dl (0.78-2.19)
[2023-02-15 19:51] LABS: Erythrocyte Sedimentation Rate 55 mm/hr (0-20)
[2023-02-15 19:52] LABS: Thyroid Stimulating Hormone 2.48 uIU/mL (0.465-4.68)
[2023-02-15 20:12] LABS: Vitamin B12 226 pg/mL (239-931)
[2023-02-17 07:20] LABS: RA Latex Turbid. <10.0 IU/mL (<14.0)
[2023-02-17 08:15] LABS: C-Reactive Protein 31.7 mg/L (0-4)
[2023-02-18 14:37] LABS: Anti-Centromere B Antibodies <0.2 AI (0.0-0.9); Anti-DNA (DS) Ab Qn 1 IU/mL (0-9); Anti-Jo-1 <0.2 AI (0.0-0.9); Anti-Smith Antibody <0.2 AI (0.0-0.9); Antichromatin Antibodies <0.2 AI (0.0-0.9); Antiscleroderma-70 Antibodies 0.2 AI (0.0-0.9); RNP Antibodies <0.2 AI (0.0-0.9); Sjogren's Anti-SS-A <0.2 AI (0.0-0.9); Sjogren's Anti-SS-B <0.2 AI (0.0-0.9)
[2023-02-23 10:49] LABS: Antinuclear Antibodies, IFA POSITIVE
== END ==
PROVIDERS: PCP Nurse Practitioner; Visit Provider Nurse Practitioner
DX: R53.83 Other fatigue (principal); M25.50 Pain in unspecified joint; R60.0 Localized edema; R70.0 Elevated erythrocyte sedimentation rate; D51.8 Other vitamin B12 deficiency anemias
CPT/HCPCS: 80053; 82607; 83880; 84439; 84443; 84550; 85025; 85651; 86038; 86140; 86225; 86235; 86431

== ENCOUNTER → 2023-03-13 15:09 | Outpatient (CLI) | payer OTHER, SELFPAY ==
--- NOTE | 2023-03-13 15:15 | CA_ITS ---
APPROVED REPORT EXAM: Comprehensive 2D, Doppler, and color-flow Echocardiogram Gold Prospector: Tammy Baxter RT(R) Ht: 5 ft 3 in Wt: 277lbs BSA: 2.22 BP: 118/72 mmHg Indications: localized edema, fatigue, obesity 2D Dimensions LVOT 1.98 cm (M/F) 1.5-2.5 LA Volume 26.10 mL LA Volume Index 11.76 mL/m2 (M/F) 16-34 M-Mode Dimensions RVDd 2.62 cm (0.9-2.6) LA Diam 3.40 cm (1.9-4.0) LVDd 4.66 cm (3.5-5.7) Ao Diam 2.66 cm (2.0-3.7) LVDs 3.49 cm (3.5-5.7) IVSd 0.67 cm (0.6-1.1) PWd 0.77 cm (0.6-1.1) EF (Teich) 49.70% FS 25.10% EDV (Teich) 100.30 mL ESV (Teich) 50.50 mL LV Diastology E Decel Time 173.00 (160-240 msec) E/A Ratio 1.5 MED E' 13.60 (< 7 cm/sec) E'/MED E' Ratio 7.04 (>14) LAT E' 20.70 (<10 cm/sec) E/LAT E' Ratio 4.63 (>14) Mitral Valve MV E Max Rafy. 96.00 (40-130 cm/s) MV A Velocity 62.00 (40-130 cm/s) E/A Ratio 1.55 MV Decel. Time 173.00 (160-240 ms) MV PHT 51.00 ms Tricuspid Valve TR P. Velocity 252.00 cm/s RAP Estimate 10.00 mmHg RVSP 35.40 mmHg Left Ventricle The left ventricle is normal size. The left ventricular systolic function is normal. The left ventricular ejection fraction is within the normal range. There is normal left ventricular wall thickness. There is normal LV segmental wall motion. The left ventricular diastolic function is normal. LVEF is 55%. Right Ventricle The right ventricle is normal size. The right ventricular systolic function is normal. Atria The left atrium size is normal. The right atrium size is normal. Aortic Valve The aortic valve opens well. There is no aortic valvular stenosis. No aortic regurgitation is present. Mitral Valve The mitral valve is normal in structure. No evidence of mitral valve stenosis. Trace mitral regurgitation. Tricuspid Valve The tricuspid valve leaflets are thin and pliable. Mild tricuspid regurgitation. RVSP is 22-25 mmHg. Pulmonic Valve The pulmonary valve is normal in structure. Trace pulmonic regurgitation. Great Vessels The aortic root is normal in size. The ascending aorta is normal in size. IVC is normal in size and collapses >50% with inspiration. Pericardium There is no pericardial effusion. Other Information Study Quality: Adequate Conclusion Normal biventricular systolic function. Mild TR. Electronically signed by : Alisa Cheatham MD 03/14/2023 20:55:55
== END ==
LOC: RT 15:10
PROVIDERS: PCP Nurse Practitioner; Visit Provider Nurse Practitioner
DX: R60.0 Localized edema (principal)
CPT/HCPCS: 93306

== ENCOUNTER 2023-07-21 15:54 | Outpatient (CLI) | payer OTHER, SELFPAY ==
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
[2023-07-21 16:31] LABS: Microscopic, Urine URINE MICROSCOPIC (MICROSCOPIC)
[2023-07-21 17:03] LABS: Basophils % 0.2 % (0.1-2.0); Eosinophils # 0.2 K/mm3 (0.0-0.4); Eosinophils % 1.6 % (0.1-12.0); Hematocrit 36.7 % (37.0-47.0); Hemoglobin 11.5 g/dL (12.2-16.2); Lymphocytes # 2.9 K/mm3 (0.7-4.5); Lymphocytes % 23.3 % (10-50); Mean Corpuscular HGB Conc 31.4 g/dL (31.8-35.4); Mean Corpuscular Hemoglobin 30.5 pg (27.0-31.2); Mean Corpuscular Volume 97.1 fl (81-99); Mean Platelet Volume 7.7 fl (7.4-10.4); Monocytes # 0.4 K/mm3 (0.1-1.0); Monocytes % 3.2 % (1.7-9.3); Neutrophils # 8.8 K/mm3 (1.8-7.8); Neutrophils % 71.7 % (37.0-80.0); Platelet Count 380 K/mm3 (142-424); Red Blood Count 3.78 M/mm3 (4.20-5.40); Red Cell Distribution Width 13.8 % (11.5-17.5); White Blood Count 12.3 K/mm3 (4.8-10.8)
[2023-07-21 17:09] LABS: Appearance,Urine CLEAR (Clear); Blood, Urine Negative (Negative); Color,Urine YELLOW (Yellow); Glucose,Urine (UA) Negative (Negative); Ketones,Urine TRACE (Negative); Leukocyte Esterase,Urine Negative (Negative); Nitrate,Urine Negative (Negative); PH,Urine 5.5 (5.0-8.5); Protein,Urine TRACE (Negative); Specific Gravity, Urine >= 1.030 (1.005-1.030)
[2023-07-21 17:10] LABS: Bilirubin,Urine 1+ (Negative)
[2023-07-21 17:33] LABS: Bacteria,Urine Trace /lpf; RBC,Urine Occasional #/hpf (0-3)
[2023-07-21 17:41] LABS: Alanine Aminotransferase 20 U/L (12-78); Albumin/Globulin Ratio 1.4 (1.1-1.8); Alkaline Phosphatase 113 U/L (38-126); Aspartate Amino Transferase 23 U/L (14-36); Bilirubin,Total 0.5 mg/dl (0.2-1.3); Blood Urea Nitrogen 7 mg/dl (7-17); Carbon Dioxide 27 mmol/L (22.0-30.0); Chloride 108 mmol/L (98-107); Erythrocyte Sedimentation Rate 81 mm/hr (0-20); Estimated Glomerular Filt Rate 71 ml/min (>60); GFR (African American) 86 ML/MIN (>60); Globulin 2.9 g/dL (1.3-3.2); Glucose 108 mg/dl (74-100); Sodium 142 mmol/L (136-145); Total Protein,Serum 6.9 g/dl (6.3-8.2); Uric Acid 3.9 mg/dl (2.5-6.2)
[2023-07-21 17:45] LABS: Creatinine,Urine Random 772 mg/dL (Not Estab.); Microalbumin/Creatinine Ratio 3.5
[2023-07-21 17:47] LABS: C-Reactive Protein 26.9 mg/L (0-4)
[2023-07-21 18:14] LABS: Thyroid Stimulating Hormone 2.34 uIU/mL (0.465-4.68)
[2023-07-22 04:37] LABS: Thyroid Peroxidase Antibodies 12 IU/mL (0-34)
[2023-07-22 06:33] LABS: HBsAg Screen Negative (Negative); HCV Ab Non Reactive (Non Reactive); Hep A Ab, IGM Negative (Negative); Hep B Core Ab, IgM Negative (Negative)
[2023-07-22 16:35] LABS: Anti-Cyclic Citrullinated Pept 5 units (0-19)
[2023-07-23 13:39] LABS: Thyroid Stimulating Immunoglob <0.10 IU/L (0.00-0.55)
[2023-07-23 16:09] LABS: Beta-2 Glycoprotein I Ab, IgA <9 (0-25); Beta-2 Glycoprotein I Ab, IgG <9 (0-20); Beta-2 Glycoprotein I Ab, IgM <9 (0-32)
[2023-07-24 13:50] LABS: Angiotensin Converting Enzyme 51 U/L (14-82)
[2023-07-24 14:10] LABS: Lupus Reflex Interpretation Comment: (.); PTT-LA 42.7 sec (0.0-43.5); dRVVT 42.6 sec (0.0-47.0)
[2023-07-24 14:10] LABS: Anti-Cardio Antibody IgM <9 MPL U/mL (0-12); Anti-Cardiolipin Antibody IgG <9 GPL U/mL (0-14); Anticardiolipin Ab,IgA,Qn <9 APL U/mL (0-11)
[2023-07-24 17:28] LABS: Thyroglobulin Level <1.0 IU/mL (0.0-0.9)
[2023-07-25 10:44] LABS: Miscellaneous Test SCANNED IMAGE
== END 2023-07-21 23:59 ==
LOC: LAB 15:55
PROVIDERS: PCP Nurse Practitioner Family; Visit Provider Internal Medicine Rheumatology
DX: R60.0 Localized edema (principal); R70.0 Elevated erythrocyte sedimentation rate; Z79.899 Other long term (current) drug therapy; R53.83 Other fatigue; Z87.891 Personal history of nicotine dependence; M25.50 Pain in unspecified joint; R76.8 Other specified abnormal immunological findings in serum; L40.9 Psoriasis, unspecified; Z11.3 Encounter for screening for infections with a predominantly sexual mode of transmission; Z11.59 Encounter for screening for other viral diseases
CPT/HCPCS: 36415; 71046; 80053; 80074; 81001; 82043; 82164; 82570; 84443; 84445; 84550; 85025; 85613; 85651; 86140; 86146; 86147; 86200; 86376; 86800

== ENCOUNTER 2023-10-02 14:29 | Outpatient (CLI) | payer OTHER, SELFPAY | END 2023-10-02 23:59 | disposition home or self-care (01) | LOC: LAB.DROPOF 10-03 14:31 | PROVIDERS: PCP Family Medicine; Visit Provider Family Medicine | DX: L02.31 Cutaneous abscess of buttock (principal); L02.91 Cutaneous abscess, unspecified; B95.4 Other streptococcus as the cause of diseases classified elsewhere; B96.89 Other specified bacterial agents as the cause of diseases classified elsewhere | CPT/HCPCS: 87070; 87077; 87186; 87205 ==

== ENCOUNTER 2023-11-23 09:13 | Outpatient (CLI) | payer OTHER, SELFPAY ==
[2023-11-23 18:11] LABS: Basophils % 0.5 % (0.1-2.0); Eosinophils # 0.2 K/mm3 (0.0-0.4); Eosinophils % 2.4 % (0.1-12.0); Hematocrit 39.4 % (37.0-47.0); Hemoglobin 12.7 g/dL (12.2-16.2); Lymphocytes # 1.6 K/mm3 (0.7-4.5); Lymphocytes % 20.7 % (10-50); Mean Corpuscular HGB Conc 32.4 g/dL (31.8-35.4); Mean Corpuscular Hemoglobin 30.2 pg (27.0-31.2); Mean Corpuscular Volume 93.3 fl (81-99); Mean Platelet Volume 7.2 fl (7.4-10.4); Monocytes # 0.4 K/mm3 (0.1-1.0); Monocytes % 4.6 % (1.7-9.3); Neutrophils # 5.7 K/mm3 (1.8-7.8); Neutrophils % 71.8 % (37.0-80.0); Platelet Count 476 K/mm3 (142-424); Red Blood Count 4.22 M/mm3 (4.20-5.40); Red Cell Distribution Width 13.4 % (11.5-17.5)
[2023-11-23 18:50] LABS: Hemoglobin A1C 5.2 % (4.0-6.0)
[2023-11-23 19:10] LABS: Erythrocyte Sedimentation Rate 55 mm/hr (0-20)
[2023-11-23 19:33] LABS: Alanine Aminotransferase 21 U/L (12-78); Albumin Level 4.3 g/dl (3.5-5.0); Albumin/Globulin Ratio 1.2 (1.1-1.8); Alkaline Phosphatase 137 U/L (38-126); Anion Gap 14.7 mEq/L (5-15); Aspartate Amino Transferase 26 U/L (14-36); Bilirubin,Total 0.4 mg/dl (0.2-1.3); Blood Urea Nitrogen 7 mg/dl (7-17); Calcium 9.6 mg/dl (8.4-10.2); Carbon Dioxide 31 mmol/L (22.0-30.0); Chloride 97 mmol/L (98-107); Estimated Glomerular Filt Rate 51 ml/min (>60); GFR (African American) 62 ML/MIN (>60); Globulin 3.5 g/dL (1.3-3.2); Glucose 88 mg/dl (74-100); Potassium 3.7 mmoL/L (3.5-5.1); Sodium 139 mmol/L (136-145); Total Protein,Serum 7.8 g/dl (6.3-8.2)
[2023-11-23 20:12] LABS: Thyroid Stimulating Hormone 2.06 uIU/mL (0.465-4.68)
== END 2023-11-23 23:59 | disposition home or self-care (01) ==
LOC: LAB.DROPOF 11-24 09:14
PROVIDERS: PCP Nurse Practitioner; Visit Provider Nurse Practitioner
DX: R55 Syncope and collapse (principal); R70.0 Elevated erythrocyte sedimentation rate; R00.2 Palpitations
CPT/HCPCS: 80050; 80053; 83036; 84443; 85025; 85651; 87086

== ENCOUNTER 2024-08-01 14:17 | Outpatient (CLI) | payer OTHER, SELFPAY ==
[2024-08-01 20:44] LABS: Basophils % 0.4 % (0.1-2.0); Eosinophils # 0.2 K/mm3 (0.0-0.4); Eosinophils % 2.1 % (0.1-12.0); Hematocrit 37.6 % (37.0-47.0); Hemoglobin 11.8 g/dL (12.2-16.2); Lymphocytes # 2.6 K/mm3 (0.7-4.5); Lymphocytes % 27.7 % (10-50); Mean Corpuscular HGB Conc 31.4 g/dL (31.8-35.4); Mean Corpuscular Hemoglobin 28.9 pg (27.0-31.2); Mean Corpuscular Volume 91.9 fl (81-99); Mean Platelet Volume 10.3 fl (7.4-10.4); Monocytes # 0.5 K/mm3 (0.1-1.0); Monocytes % 5.3 % (1.7-9.3); Neutrophils # 5.9 K/mm3 (1.8-7.8); Neutrophils % 64.3 % (37.0-80.0); Platelet Count 436 K/mm3 (142-424); Red Blood Count 4.09 M/mm3 (4.20-5.40); White Blood Count 9.2 K/mm3 (4.8-10.8)
[2024-08-01 20:59] LABS: Alanine Aminotransferase 18 U/L (12-78); Albumin Level 4.4 g/dl (3.5-5.0); Albumin/Globulin Ratio 1.6 (1.1-1.8); Alkaline Phosphatase 108 U/L (38-126); Anion Gap 11.3 mEq/L (5-15); Aspartate Amino Transferase 22 U/L (14-36); Bilirubin,Total 0.3 mg/dl (0.2-1.3); Blood Urea Nitrogen 9 mg/dl (7-17); Calcium 8.8 mg/dl (8.4-10.2); Carbon Dioxide 30 mmol/L (22.0-30.0); Chloride 103 mmol/L (98-107); Estimated Glomerular Filt Rate 62 ml/min (>60); GFR (African American) 75 ML/MIN (>60); Globulin 2.8 g/dL (1.3-3.2); Glucose 78 mg/dl (74-100); Potassium 4.3 mmoL/L (3.5-5.1); Sodium 140 mmol/L (136-145); Total Protein,Serum 7.2 g/dl (6.3-8.2)
[2024-08-01 21:23] LABS: Erythrocyte Sedimentation Rate 41 mm/hr (0-20)
[2024-08-01 21:45] LABS: Iron 49 ug/dL (37-170)
[2024-08-01 21:55] LABS: Total Iron Binding Capacity 370 ug/dL (265-497)
[2024-08-01 22:21] LABS: Ferritin 23.8 ng/ml (6.24-137)
== END 2024-08-01 23:59 | disposition home or self-care (01) ==
LOC: LAB.DROPOF 08-05 14:18
PROVIDERS: PCP Family Medicine; Visit Provider Family Medicine
DX: R76.8 Other specified abnormal immunological findings in serum (principal); R53.83 Other fatigue; M25.50 Pain in unspecified joint; I10 Essential (primary) hypertension
CPT/HCPCS: 80053; 82728; 83540; 83550; 85025; 85651

== ENCOUNTER 2024-10-23 20:45 | Outpatient (CLI) | payer OTHER, SELFPAY ==
[2024-10-23 22:40] LABS: Basophils % 0.1 % (0.1-2.0); Eosinophils # 0.3 Kmm3 (0.0-0.4); Eosinophils % 3.7 % (0.1-12.0); Hematocrit 36.2 % (37.0-47.0); Hemoglobin 11.4 g/dL (12.2-16.2); Immature Granulocytes # 0.02 10^3uL; Immature Granulocytes % 0.3 %; Lymphocytes # 1.8 K/mm3 (0.7-4.5); Lymphocytes % 24.4 % (10-50); Mean Corpuscular HGB Conc 31.5 g/dL (31.8-35.4); Mean Corpuscular Hemoglobin 29.7 pg (27.0-31.2); Mean Corpuscular Volume 94.3 fl (81-99); Mean Platelet Volume 10.3 fl (7.4-10.4); Monocytes # 0.4 K/mm3 (0.1-1.0); Monocytes % 5.6 % (1.7-9.3); Neutrophils # 4.9 K/mm3 (1.8-7.8); Neutrophils % 65.9 % (37.0-80.0); Nucleated Red Blood Cells # 0 10^3/uL; Nucleated Red Blood Cells % 0 %; Platelet Count 406 K/mm3 (142-424); Red Blood Count 3.84 M/mm3 (4.20-5.40); Red Cell Distribution Width 13.4 % (11.5-17.5); Red Cell Distribution Width-SD 45.7 fL; White Blood Count 7.4 K/mm3 (4.8-10.8)
[2024-10-23 23:08] LABS: Alanine Aminotransferase 16 U/L (12-78); Albumin Level 3.7 g/dl (3.5-5.0); Albumin/Globulin Ratio 1.5 (1.1-1.8); Alkaline Phosphatase 114 U/L (38-126); Anion Gap 13.2 mEq/L (5-15); Aspartate Amino Transferase 20 U/L (14-36); Bilirubin,Total 0.4 mg/dl (0.2-1.3); Blood Urea Nitrogen 7 mg/dl (7-17); Calcium 8.4 mg/dl (8.4-10.2); Carbon Dioxide 28 mmol/L (22.0-30.0); Chloride 103 mmol/L (98-107); Estimated Glomerular Filt Rate 70 ml/min (>60); GFR (African American) 85 ML/MIN (>60); Globulin 2.5 g/dL (1.3-3.2); Potassium 4.2 mmoL/L (3.5-5.1); Sodium 140 mmol/L (136-145); Total Protein,Serum 6.2 g/dl (6.3-8.2)
[2024-10-23 23:14] LABS: Glucose 49 mg/dl (74-100)
[2024-10-23 23:20] LABS: Hemoglobin A1C 5.2 % (4.0-6.0)
[2024-10-23 23:30] LABS: 25-OH Vitamin D, Total < 12.8 ng/mL (30-100)
[2024-10-23 23:38] LABS: Thyroid Stimulating Hormone 2.04 uIU/mL (0.465-4.68)
[2024-10-24 01:04] LABS: Erythrocyte Sedimentation Rate 87 mm/hr (0-20)
[2024-10-24 15:31] LABS: Vitamin B12 188 pg/mL (239-931)
== END 2024-10-23 23:59 | disposition home or self-care (01) ==
LOC: LAB.DROPOF 20:46
PROVIDERS: PCP Nurse Practitioner Family; Visit Provider Nurse Practitioner Family
DX: R10.84 Generalized abdominal pain (principal); R60.0 Localized edema; Z13.29 Encounter for screening for other suspected endocrine disorder
CPT/HCPCS: 80053; 82306; 82607; 83036; 84443; 85025; 85651